=== PATIENT | female | born 1965 | race Caucasian/White ===

== ENCOUNTER → 2017-06-17 | Outpatient (CLI) | payer OTHER ==
[~2017-06-17] MED LIST: FISH OIL 1,2001 EAC4 PO; OMEPRAZOLE40 M1 PO; ONE DAILY WOME1 EACH PO; ZYRTEC10 M3 PO
== END | disposition home or self-care (01) ==
LOC: NUC 05-23 10:00
DX: R10.13 Epigastric pain (principal); R11.2 Nausea with vomiting, unspecified
CPT/HCPCS: 78226; A9537